=== PATIENT | male | born 1935 | race Caucasian/White ===

== ENCOUNTER 2019-12-21 11:45 | Inpatient (IN) | payer MEDICARE, BC ==
[~2019-12-21] VITALS: Ht 185.4 cm; Wt 83.8 kg
[~2019-12-21 11:45] MED LIST: AMOX1XR PO; ASPI81EC PO; CPAP; CYAN500; CYCL10 PO; FLUT.05NI; OXYACE5T PO; PRAV20 PO; PSEU120ER PO; Saw Palmetto500 MG; TOCO1000; TURMERIC500 M2; VITAMENS; Vitamin C100 M1; [UNRECOGNIZED DRUG - REMARK]
[2019-12-21] MEDS ORDERED: POTCHL20ER PO (12:34)
[2019-12-21] MEDS ORDERED: ENTRESTO 24 MG1 EACH PO (12:34)
[2019-12-21] MEDS ORDERED: FURO20 PO (12:34)
[2019-12-21] MEDS ORDERED: Aspirin EC81 MG PO (12:35)
[2019-12-21 12:38] LABS: Mean Corpuscular HGB Conc 32.7 g/dL (31.5-36.5); Mean Corpuscular Volume 92 fL (80-100); Mean Platelet Volume 10.6 fL (9.1-12.4); Platelet Count 233 K/mm3 (150-400); RDW Coefficient Variation 14.2 % (11.7-14.2); Red Blood Cell Count 5.34 M/mm3 (4.30-5.90)
[2019-12-21 13:00] LABS: Alanine Aminotransfer (ALT/SGP 47 U/L (12-78); Albumin, Blood 3.9 g/dL (3.4-5.0); Alk Phos 58 U/L (50-136); Anion Gap 6 mmol/L (6-16); Aspartate Aminotrans (AST/SGOT 26 U/L (12-37); Bilirubin, Total 0.6 mg/dL (0.1-1.0); Blood Urea Nitrogen 34 mg/dL (8-24); Bun/Creatinine Ratio 34.7 (12.0-20.0); CHOL/HDL RATIO 4.1; CO2, Blood 29 mmol/L (21-32); Calcium, Blood 9.1 mg/dL (8.5-10.1); Chloride, Blood 100 mmol/L (98-108); Cholesterol 235 mg/dL (50-200); Creatinine, Blood 0.98 mg/dL (0.60-1.20); Globulin, Blood 3.9 g/dL (2.2-4.0); Glomerular Filtration Rate >60 (60-); Glucose, Blood 112 mg/dL (70-99); HDL Cholesterol 57 mg/dL (>39); LDL/HDL RATIO 2.8; Low Density Lipoprotein Chol 162 mg/dL (0-110); Potassium, Blood 4.8 mmol/L (3.5-5.5); Sodium, Blood 135 mmol/L (136-145); Total Protein, Blood 7.8 g/dL (6.4-8.2); Triglycerides 81 mg/dL (30-160); Troponin I 0.019 ng/mL (0.000-0.040); Very Low Density Lipoprot Chol 16 mg/dL (6-32)
[2019-12-21 13:58] LABS: Prothrombin Time Results 10.7 Sec (9.7-11.5)
--- NOTE | 2019-12-21 17:12 | NUR ---
ALERT. ORIENTED. HAD C.P. AT HOME AT ABOUT 10 AM. NO C.P. SINCE COMING TO HOSPITAL. ON HEPARIN DRIP. GALDINO LUTHER HAS SPOKEN TO JEWEL BEARING GRINDER. AWARE NEEDS TO LET US KNOW IF NEEDS TO USE BATHROOM DUE TO HIS CONNECTING LINES. COOPERATIVE. PLEASANT. TELE ON SR W/PAC'S. ABLE TO MAKE NEEDS KNOWN. UNLABORED RESPIRATIONS. WCTM
[2019-12-22 04:56] LABS: BASOPHILS ABSOLUTE AUTO 0.06 K/mm3 (0.00-0.23); BASOPHILS PERCENT AUTO 1 % (0-2); EOSINOPHILS ABSOLUTE AUTO 0.26 K/mm3 (0.00-0.68); EOSINOPHILS PERCENT AUTO 3 % (0-6); Hematocrit 48.2 % (37.0-53.0); Hemoglobin 16.1 g/dL (13.5-17.5); IMMATURE GRAN ABSOLUTE AUTO 0.03 K/mm3 (0.00-0.10); IMMATURE GRAN PERCENT AUTO 0 % (0-1); LYMPHOCYTES ABSOLUTE AUTO 1.04 K/mm3 (0.84-5.20); LYMPHOCYTES PERCENT AUTO 12 % (21-46); MONOCYTES ABSOLUTE AUTO 0.79 K/mm3 (0.16-1.47); MONOCYTES PERCENT AUTO 9 % (4-13); Mean Corpuscular HGB Conc 33.4 g/dL (31.5-36.5); Mean Corpuscular Volume 90 fL (80-100); Mean Platelet Volume 10.4 fL (9.1-12.4); NEUTROPHILS PERCENT AUTO 76 % (41-73); Platelet Count 230 K/mm3 (150-400); RDW Coefficient Variation 14.2 % (11.7-14.2); RDW Standard Deviation 46.9 fL (35.1-46.3); Red Blood Cell Count 5.36 M/mm3 (4.30-5.90); White Blood Cell Count 8.98 K/mm3 (4.00-11.30)
[2019-12-22 05:15] LABS: Alanine Aminotransfer (ALT/SGP 40 U/L (12-78); Albumin, Blood 3.6 g/dL (3.4-5.0); Alk Phos 74 U/L (50-136); Anion Gap 8 mmol/L (6-16); Aspartate Aminotrans (AST/SGOT 27 U/L (12-37); Bilirubin, Total 0.9 mg/dL (0.1-1.0); Blood Urea Nitrogen 33 mg/dL (8-24); Bun/Creatinine Ratio 32.4 (12.0-20.0); CO2, Blood 26 mmol/L (21-32); Calcium, Blood 8.9 mg/dL (8.5-10.1); Chloride, Blood 102 mmol/L (98-108); Creatinine, Blood 1.02 mg/dL (0.60-1.20); Globulin, Blood 3.7 g/dL (2.2-4.0); Glomerular Filtration Rate >60 (60-); Glucose, Blood 132 mg/dL (70-99); Magnesium, Blood 1.9 mg/dL (1.6-2.4); Potassium, Blood 4.5 mmol/L (3.5-5.5); Sodium, Blood 136 mmol/L (136-145); Total Protein, Blood 7.3 g/dL (6.4-8.2)
--- NOTE | 2019-12-22 10:04 | NUR ---
Echocardiogram completed.
--- NOTE | 2019-12-22 13:14 | NUR ---
a+o, no chest pain, 2 ivs in upper arms, rm air, bed in low position, at bed side, npo for procedure, picked up by heart staff
--- NOTE | 2019-12-22 13:21 | NUR ---
REPORT FROM NISHI HEARD. PATIENT WILL BE COMING TO PCU 01 FROM STATION ENGINEER CHIEF. NO STENT PLACED. RIGHT RADIAL ACCESS WITH 12 CC AIR IN TR BAND
--- NOTE | 2019-12-22 14:18 | NUR ---
MD VISIT DR. CARRASCO IN. NO NEW ORDERS
--- NOTE | 2019-12-22 15:30 | NUR ---
1 CC AIR REMOVED FROM TR BAND
--- NOTE | 2019-12-22 15:59 | NUR ---
ADDITIONAL 3 CC AIR REMOVED FROM TR BAND
--- NOTE | 2019-12-22 16:25 | NUR ---
ALL 12 CC AIR REMOVED FROM TR BAND. PATIENT SEEMS A LITTLE CONFUSED. GOT OOB, SAYING HE NEEDED TO USE RESTROOM, AND THEN SAID HE DIDN'T NEED TO GO YET.
--- NOTE | 2019-12-22 16:26 | NUR ---
MD VISIT DR. CARRASCO IN
--- NOTE | 2019-12-22 16:56 | NUR ---
TR BAND REMAINS IN PLACE WHILE DEFLATED. ARM BOARD ON. PATIENT SLEEPING
--- NOTE | 2019-12-22 18:43 | NUR ---
PATIENT UP AD MITCH IN ROOM. ARM BOARD IN PLACE RT RADIAL. REMINDED NOT TO USE RIGHT ARM AND TO PRETEND WRIST IS BROKEN. WILL REPORT TO ONCOMING RN
--- NOTE | 2019-12-22 19:01 | NUR ---
RADIAL SITE CONTINUES STABLE. REPORT GIVEN TO NISHI COVARRUBIAS
--- NOTE | 2019-12-23 04:13 | NUR ---
SHIFT SUMMARY: PATIENT RIGHT RADIAL SITE C/D/I WITH NO SIGN OF HEMATOMA, BLEEDING OR INFECTION; ALL SENSATIONS INTACT WITH CAPILLARY REFILL OF < 3 SECOUNDS. ALL VSS, PATIENT ALERT AND ORIENTED WITH NO COMPLAINTS THIS SHIFT, STEADY ON FEET. CALL LIGHT WITHIN REACH, BED LOW AND LOCKED.
[2019-12-23] MEDS ORDERED: CLOP75 PO (09:59)
[2019-12-23] MEDS ORDERED: ATORVASTATIN CA80 MG PO (09:59)
[2019-12-23] MEDS ORDERED: METO25ER PO (10:00)
--- NOTE | 2019-12-23 12:48 | NUR ---
DISCHARGE INSTRUCTIONS GONE OVER WITH PT. INSTRUCTED PT ON NEW MEDICATIONS AND HOW TO OBTAIN THEM AT THEIR PHARMACY. PROVIDED CHF TEACHING WITH PT AND INSTRUCTED PT ON FOLLOW UP APPTS. PT AND FAMILY STATED UNDERSTANDING. ALL BELONGINGS GATHERED AND GIVEN TO PT. PT WAS ESCORTED OUT VIA WHEELCHAIR BY ALMA MCCARTHY.
== END 2019-12-23 12:50 | disposition home or self-care (01) | DRG 281 ==
LOC: ER 11:45 → MEDS 14:55 → PCU 12-22 12:39
PROVIDERS: Emergency Medicine; Nurse Practitioner Acute Care; Pharmacist; ADMIT Family Medicine
PROC: B211YZZ Fluoroscopy of Multiple Coronary Arteries using Other Contrast (ICD-10-PCS; principal; 2019-12-22)
DX: I21.4 Non-ST elevation (NSTEMI) myocardial infarction (principal); I50.22 Chronic systolic (congestive) heart failure; E78.5 Hyperlipidemia, unspecified; I11.0 Hypertensive heart disease with heart failure; I25.10 Atherosclerotic heart disease of native coronary artery without angina pectoris; G47.33 Obstructive sleep apnea (adult) (pediatric); Z79.82 Long term (current) use of aspirin; Z95.1 Presence of aortocoronary bypass graft; Z95.2 Presence of prosthetic heart valve; Z87.891 Personal history of nicotine dependence
CPT/HCPCS: 36415; 71045; 76937; 80053; 80061; 83735; 84484; 85025; 85027; 85610; 85730; 86850; 86900; 86901; 93005; 93010; 93308; 93454; 96365; 96375; 99152; 99153; 99285-25; A9270; A9270-GY; C1769; C1894; J1644; J1940; J2250; J3010; J7030; Q9967

== ENCOUNTER 2020-01-08 19:37 | Emergency (ER) | payer MEDICARE, BC ==
[~2020-01-08] VITALS: Ht 185.4 cm; Wt 78.5 kg
[~2020-01-08 19:37] MED LIST changes: +ATORVASTATIN CA80 MG PO; +Aspirin EC81 MG PO; +CLOP75 PO; +ENTRESTO 24 MG1 EACH PO; +FURO20 PO; +METO25ER PO; +POTCHL20ER PO
[2020-01-08] MEDS ORDERED: SPIRONOLACTONE25 MG PO (20:07)
[2020-01-08] MEDS ORDERED: ENTRESTO 24 MG1 EAC1 PO (20:07)
[2020-01-08 20:38] LABS: BASOPHILS ABSOLUTE AUTO 0.03 K/mm3 (0.00-0.23); BASOPHILS PERCENT AUTO 1 % (0-2); EOSINOPHILS ABSOLUTE AUTO 0.07 K/mm3 (0.00-0.68); EOSINOPHILS PERCENT AUTO 2 % (0-6); Hematocrit 46.7 % (37.0-53.0); Hemoglobin 15.2 g/dL (13.5-17.5); IMMATURE GRAN ABSOLUTE AUTO 0.01 K/mm3 (0.00-0.10); IMMATURE GRAN PERCENT AUTO 0 % (0-1); LYMPHOCYTES ABSOLUTE AUTO 0.69 K/mm3 (0.84-5.20); LYMPHOCYTES PERCENT AUTO 16 % (21-46); MONOCYTES ABSOLUTE AUTO 0.39 K/mm3 (0.16-1.47); MONOCYTES PERCENT AUTO 9 % (4-13); Mean Corpuscular HGB 30.5 pg (26.0-34.0); Mean Corpuscular HGB Conc 32.5 g/dL (31.5-36.5); Mean Corpuscular Volume 94 fL (80-100); Mean Platelet Volume 10.8 fL (9.1-12.4); NEUTROPHILS ABSOLUTE AUTO 3.03 K/mm3 (1.96-9.15); NEUTROPHILS PERCENT AUTO 72 % (41-73); Platelet Count 135 K/mm3 (150-400); RDW Coefficient Variation 14.6 % (11.7-14.2); RDW Standard Deviation 50.2 fL (35.1-46.3); Red Blood Cell Count 4.99 M/mm3 (4.30-5.90); White Blood Cell Count 4.22 K/mm3 (4.00-11.30)
[2020-01-08 20:50] LABS: Alanine Aminotransfer (ALT/SGP 143 U/L (12-78); Albumin, Blood 3.6 g/dL (3.4-5.0); Alk Phos 129 U/L (50-136); Anion Gap 7 mmol/L (6-16); Aspartate Aminotrans (AST/SGOT 84 U/L (12-37); Bilirubin, Total 0.6 mg/dL (0.1-1.0); Blood Urea Nitrogen 45 mg/dL (8-24); Bun/Creatinine Ratio 42.5 (12.0-20.0); CO2, Blood 26 mmol/L (21-32); Calcium, Blood 8.7 mg/dL (8.5-10.1); Chloride, Blood 105 mmol/L (98-108); Creatinine, Blood 1.06 mg/dL (0.60-1.20); Globulin, Blood 3.5 g/dL (2.2-4.0); Glomerular Filtration Rate >60 (60-); Glucose, Blood 114 mg/dL (70-99); Potassium, Blood 4.5 mmol/L (3.5-5.5); Sodium, Blood 138 mmol/L (136-145); Total Protein, Blood 7.1 g/dL (6.4-8.2)
[2020-01-08] MEDS ORDERED: XARELTO20 MG PO (22:46)
[2020-01-08] MEDS ORDERED: Amiodarone HCl200 MG PO (22:46)
== END 2020-01-09 00:27 | disposition home or self-care (01) ==
LOC: ER 19:37
PROVIDERS: Emergency Medicine
DX: I48.91 Unspecified atrial fibrillation (principal); I11.0 Hypertensive heart disease with heart failure; I50.22 Chronic systolic (congestive) heart failure; I25.10 Atherosclerotic heart disease of native coronary artery without angina pectoris; I25.2 Old myocardial infarction; G47.33 Obstructive sleep apnea (adult) (pediatric); Z87.891 Personal history of nicotine dependence; Z79.82 Long term (current) use of aspirin; Z79.899 Other long term (current) drug therapy
CPT/HCPCS: 36415; 80053; 84484; 85025; 93005; 93010; 99284-25

== ENCOUNTER 2020-01-11 14:07 | Inpatient (IN) | payer MEDICARE, BC ==
[~2020-01-11] VITALS: Ht 188 cm; Wt 73.2 kg
[~2020-01-11 14:07] MED LIST changes: +Amiodarone HCl200 MG PO; +ENTRESTO 24 MG1 EAC1 PO; +SPIRONOLACTONE25 MG PO; +XARELTO20 MG PO
[2020-01-11 14:29] LABS: BASOPHILS ABSOLUTE AUTO 0.01 K/mm3 (0.00-0.23); BASOPHILS PERCENT AUTO 0 % (0-2); EOSINOPHILS ABSOLUTE AUTO 0.12 K/mm3 (0.00-0.68); EOSINOPHILS PERCENT AUTO 2 % (0-6); Hematocrit 43.6 % (37.0-53.0); Hemoglobin 14.5 g/dL (13.5-17.5); IMMATURE GRAN ABSOLUTE AUTO 0.01 K/mm3 (0.00-0.10); IMMATURE GRAN PERCENT AUTO 0 % (0-1); LYMPHOCYTES ABSOLUTE AUTO 0.95 K/mm3 (0.84-5.20); LYMPHOCYTES PERCENT AUTO 17 % (21-46); MONOCYTES ABSOLUTE AUTO 0.82 K/mm3 (0.16-1.47); MONOCYTES PERCENT AUTO 15 % (4-13); Mean Corpuscular HGB 30.5 pg (26.0-34.0); Mean Corpuscular HGB Conc 33.3 g/dL (31.5-36.5); Mean Corpuscular Volume 92 fL (80-100); Mean Platelet Volume 10.6 fL (9.1-12.4); NEUTROPHILS ABSOLUTE AUTO 3.61 K/mm3 (1.96-9.15); NEUTROPHILS PERCENT AUTO 65 % (41-73); Platelet Count 152 K/mm3 (150-400); RDW Coefficient Variation 14.1 % (11.7-14.2); Red Blood Cell Count 4.76 M/mm3 (4.30-5.90); White Blood Cell Count 5.52 K/mm3 (4.00-11.30)
[2020-01-11 14:45] LABS: International Normalized Ratio 1.18; Prothrombin Time Results 12.5 Sec (9.7-11.5)
[2020-01-11 14:50] LABS: Albumin, Blood 3.4 g/dL (3.4-5.0); Bilirubin, Direct 0.2 mg/dL (0.0-0.3); Bilirubin, Indirect 0.4 mg/dL (0.1-0.7); Bilirubin, Total 0.6 mg/dL (0.1-1.0); Bun/Creatinine Ratio 37.5 (12.0-20.0); Calcium, Blood 8.4 mg/dL (8.5-10.1); Creatinine, Blood 1.68 mg/dL (0.60-1.20); Globulin, Blood 3.4 g/dL (2.2-4.0); Potassium, Blood 4.3 mmol/L (3.5-5.5); Total Protein, Blood 6.8 g/dL (6.4-8.2); Troponin I 0.045 ng/mL (0.000-0.040)
[2020-01-11 17:07] LABS: Source, Urine Catheter
[2020-01-11 17:18] LABS: Bilirubin, Urine Neg (Neg); Blood, Urine Neg (Neg); Glucose Qualitative, Urine Neg (Neg); Ketones, Urine 2+ (Neg); Leukocyte Esterase, Urine Neg (Neg); Nitrite, Urine Neg (Neg); Protein, Urine 2+ (Neg); Urobilinogen, Urine NORM (Normal)
[2020-01-11 17:30] LABS: Appearance, Urine Clear (Clear); Color, Urine Yellow (P-Yellow)
[2020-01-11 17:32] LABS: Bacteria Few /hpf; Red Blood Cells, Urine Not Seen /hpf (0-2); White Blood Cells, Urine Rare /hpf (0-5)
[2020-01-11 17:33] LABS: Amorphous Light (0-Heavy); Squamous Epithelial Cells Rare /hpf (Few)
[2020-01-11 18:35] LABS: Source, Urine Clean Catch
[2020-01-11 18:43] LABS: Bilirubin, Urine Neg (Neg); Blood, Urine Neg (Neg); Glucose Qualitative, Urine Neg (Neg); Ketones, Urine 2+ (Neg); Leukocyte Esterase, Urine Neg (Neg); Nitrite, Urine Neg (Neg); Protein, Urine 2+ (Neg); Specific Gravity, Urine 1.025 (1.003-1.022); Urobilinogen, Urine NORM (Normal)
[2020-01-11 19:00] LABS: Appearance, Urine Hazy (Clear); Color, Urine Yellow (P-Yellow)
[2020-01-11 19:03] LABS: Bacteria Mod /hpf; Red Blood Cells, Urine Not Seen /hpf (0-2); Squamous Epithelial Cells Rare /hpf (Few); White Blood Cells, Urine Rare /hpf (0-5)
[2020-01-11 19:04] LABS: Amorphous Light (0-Heavy); Calcium Oxalate Crystals Few /hpf
[2020-01-11 19:05] LABS: Granular Casts Rare /lpf (0)
--- NOTE | 2020-01-11 19:33 | NUR ---
NEW ER ADMIT REPORT RECIEVED FROM APPLIED MATHEMATICIAN. NS ORDERS CLARIFIED w DR BOLTON, STATE ONLY WANTS 500 MLS GIVEN @ 100 ML/HR. CARDIAC DINNER TRAY ORDERED/. PT IS A/O X2-3, YANKTON w BILAT HEARING AIDES IN, SOMEWHAT FORGETFUL, HESITANT. HE STATE WEAKNESS X2 DAYS, STATE DIARRHEA. CONTACT PRECAUTIONS INITIATED, GI PANEL ORDERED BY DR. HOPKINS IRREG, TELE PLACED, AFIB @ 118/MX, SCHEDULED XARELTO GIVEN. 3+ BLE EDEMA, SCDS IN PLACE. ORDER BLADDER SCAN, 8ML PVR, URINE SAMPLE SENT/ORDER. RT NOTIFIED PT BROUGHT IN HOME CPAP. VSS @ THIS TIME. PT SITTING UP IN BED FOR DINNER. ORIENTED TO CALL SYSTEM, FALL PRECATIONS. BED ALARM ON.
[2020-01-11 21:49] LABS: Bun/Creatinine Ratio 42.4 (12.0-20.0); Calcium, Blood 8.2 mg/dL (8.5-10.1); Creatinine, Blood 1.39 mg/dL (0.60-1.20)
[2020-01-11 23:56] LABS: Adenovirus F 40/41 Not Detected (NOT DETECT); Astrovirus Detected (NOT DETECT); Campylobacter Sp Not Detected (NOT DETECT); Cryptosporidium Not Detected (NOT DETECT); Cyclospora Cayetanensis Not Detected (NOT DETECT); E. Coli O157 Not Detected (NOT DETECT); Entamoeba Histolytica Not Detected (NOT DETECT); Enteroaggregative E. coli-EAEC Not Detected (NOT DETECT); Enteropathogenic E. coli-EPEC Not Detected (NOT DETECT); Enterotoxigenic E. coli-ETEC Not Detected (NOT DETECT); Giardia Lamblia Not Detected (NOT DETECT); Norovirus GI/GII Not Detected (NOT DETECT); Plesiomonas Shigelloides Not Detected (NOT DETECT); Rotavirus A Not Detected (NOT DETECT); Salmonella Sp Not Detected (NOT DETECT); Sapovirus Not Detected (NOT DETECT); Shiga Toxin-prod E. coli-STEC Not Detected (NOT DETECT); Shigella/Enteroin E. coli-EIEC Not Detected (NOT DETECT); Vibrio Cholerae Not Detected (NOT DETECT); Vibrio Sp Not Detected (NOT DETECT); Yersinia Enterocolitica Not Detected (NOT DETECT)
--- NOTE | 2020-01-12 03:05 | NUR ---
01/12/20 0240 INSURANCE SALES SPECIALIST ASSISTED PT TO BATHROOM FOR QS VOIDING. BLADDER SCAN AFTER VOID WAS = 2 ML ONLY. ABDOMEN SOFT.
[2020-01-12 05:41] LABS: BASOPHILS ABSOLUTE AUTO 0.01 K/mm3 (0.00-0.23); BASOPHILS PERCENT AUTO 0 % (0-2); EOSINOPHILS ABSOLUTE AUTO 0.22 K/mm3 (0.00-0.68); EOSINOPHILS PERCENT AUTO 5 % (0-6); Hematocrit 39.8 % (37.0-53.0); IMMATURE GRAN ABSOLUTE AUTO 0.02 K/mm3 (0.00-0.10); IMMATURE GRAN PERCENT AUTO 0 % (0-1); LYMPHOCYTES ABSOLUTE AUTO 1.24 K/mm3 (0.84-5.20); LYMPHOCYTES PERCENT AUTO 25 % (21-46); MONOCYTES ABSOLUTE AUTO 0.69 K/mm3 (0.16-1.47); MONOCYTES PERCENT AUTO 14 % (4-13); Mean Corpuscular HGB Conc 32.7 g/dL (31.5-36.5); Mean Corpuscular Volume 92 fL (80-100); NEUTROPHILS ABSOLUTE AUTO 2.71 K/mm3 (1.96-9.15); NEUTROPHILS PERCENT AUTO 55 % (41-73); Platelet Count 127 K/mm3 (150-400); RDW Coefficient Variation 14.5 % (11.7-14.2); RDW Standard Deviation 48.7 fL (35.1-46.3); Red Blood Cell Count 4.34 M/mm3 (4.30-5.90); White Blood Cell Count 4.89 K/mm3 (4.00-11.30)
[2020-01-12 06:12] LABS: Magnesium, Blood 2.1 mg/dL (1.6-2.4)
[2020-01-12 06:17] LABS: Bun/Creatinine Ratio 40.6 (12.0-20.0); Creatinine, Blood 1.28 mg/dL (0.60-1.20)
--- NOTE | 2020-01-12 07:40 | NUR ---
01/12/20 0640 FAMILY CALLED AND SPOKE WITH SDC TEACHER PRIMARY RN WITH ANOTHER PT. FAMILY WAS UPDATED ON PT STATUS AND QUESTIONS ANSWERED PER ELENA SIGALA RN. PT STABLE AND ON ISOLATION FOR POSITIVE TEST FOR C. DIFF. VITALS STABLE.UNEVENTFUL NIGHT.
--- NOTE | 2020-01-12 18:23 | NUR ---
SUMMARY PT HAS BEEN A/O X3 T/O DAY, PLEASANT AFFECT. UP IN CHAIR T/O DAY, AMBULATES IN ROOM IND, GAIT STEADY TODAY, STATE NO DIZZINESS/LIGHTHEADEDNESS. BP CONTINUES SOMEWHAT LOW 90'S/50'S, PT CAUTIONED TO DANGLE, RISE CAREFULLY & SIT BACK DOWN IF LIGHTEDHEADED. DR RESUMED AMIODORONE TODAY w PARAMETERS TO HOLD IF SBP BELOW 100. HELD @ THIS TIME/DR. PT ENCOURAGED TO DRINK 5 GLASSES OF WATER/DAY BY DR RAMOS. PT/OT EVAL TODAY, STATE PT IND IN ROOM, D/C HOME WHEN APPROP. TELE REPORT CONTINUING AFIB/AFLUTTER 90-120, DR AWARE. GFR HAS IMPROVED @ 57. PT & GRANDAUGHTER UPDATED TODAY ON PROGRESS, DR RAMOS STATE POSS D/C HOME TOMORROW.
[2020-01-13 05:09] LABS: BASOPHILS ABSOLUTE AUTO 0.01 K/mm3 (0.00-0.23); BASOPHILS PERCENT AUTO 0 % (0-2); EOSINOPHILS ABSOLUTE AUTO 0.23 K/mm3 (0.00-0.68); EOSINOPHILS PERCENT AUTO 5 % (0-6); Hemoglobin 13.8 g/dL (13.5-17.5); IMMATURE GRAN ABSOLUTE AUTO 0.01 K/mm3 (0.00-0.10); IMMATURE GRAN PERCENT AUTO 0 % (0-1); LYMPHOCYTES ABSOLUTE AUTO 1.23 K/mm3 (0.84-5.20); LYMPHOCYTES PERCENT AUTO 25 % (21-46); MONOCYTES ABSOLUTE AUTO 0.61 K/mm3 (0.16-1.47); MONOCYTES PERCENT AUTO 12 % (4-13); Mean Corpuscular HGB 29.7 pg (26.0-34.0); Mean Corpuscular HGB Conc 32.9 g/dL (31.5-36.5); Mean Corpuscular Volume 91 fL (80-100); Mean Platelet Volume 10.9 fL (9.1-12.4); NEUTROPHILS ABSOLUTE AUTO 2.94 K/mm3 (1.96-9.15); NEUTROPHILS PERCENT AUTO 58 % (41-73); Platelet Count 155 K/mm3 (150-400); RDW Coefficient Variation 14.4 % (11.7-14.2); RDW Standard Deviation 47.8 fL (35.1-46.3); Red Blood Cell Count 4.64 M/mm3 (4.30-5.90); White Blood Cell Count 5.03 K/mm3 (4.00-11.30)
[2020-01-13 05:32] LABS: Anion Gap 3 mmol/L (6-16); Blood Urea Nitrogen 44 mg/dL (8-24); Bun/Creatinine Ratio 44.1 (12.0-20.0); CO2, Blood 27 mmol/L (21-32); Calcium, Blood 8.4 mg/dL (8.5-10.1); Chloride, Blood 105 mmol/L (98-108); Glomerular Filtration Rate >60 (60-); Glucose, Blood 102 mg/dL (70-99); Potassium, Blood 4.6 mmol/L (3.5-5.5); Sodium, Blood 135 mmol/L (136-145)
--- NOTE | 2020-01-13 07:47 | NUR ---
SHIFT SUMMARY NO ACUTE CHANGES. AOX3, FOLLOWS DIRECTIONS, ANSWERS QUESTIONS APPROPRIATELY. SA[place]ATTLE. NO DIARRHEA THIS SHIFT, PT HAD MEDIUM FORMED STOOL. TOLERATING DIET. NO N/V. TELE RUNNING A. FLUTTER W/BBB HR 108. VSS. WORE CPAP @. CALL LIGHT IN REACH.
[2020-01-13] MEDS ORDERED: ACET325 PO (11:22)
[2020-01-13] MEDS ORDERED: Culturelle1 CAP PO (11:23)
[2020-01-13] MEDS ORDERED: Loperamide2 MG PO (11:24)
[2020-01-13] MEDS ORDERED: ONDA4ODT MM (11:28)
--- NOTE | 2020-01-13 12:47 | NUR ---
PT DISCHARGED FROM THE UNIT AT 1145. MEDICATIONS FAXED TO [facility]. MEDICATIONS REVIEWED. CALLED PRIMARY TO SCHEDULE FOLLOW UP APT. THEY WILL CALL HIM BACK TO SCHEDULE, PT DOES NOT CURRENTLY SEE A CORPORATE STRATEGY INTERN, NOTIFIED PT THAT HE WILL NEED TO ESTABLISH A CORPORATE STRATEGY INTERN AND SHOULD DISCUSS WITH HIS PRIMARY. DISCHARGE INSTRUCTIONS REVIEWED. IV REMOVED. IV SITE BAGAN TO LEAK, DRESSING REINFORCED AND CHANGED PRIOR TO PT LEAVING. PT LEFT VIA WHEELCHAIR WHERE FAMILY WILL PRIVIDE A RIDE HOME
== END 2020-01-13 12:18 | disposition home or self-care (01) | DRG 683 ==
LOC: ER 14:07 → MEDS 14:08 → ENPENDDIS 01-13 11:03 → MEDS 01-13 12:18
PROVIDERS: Family Medicine; Physician Assistant; ADMIT Internal Medicine
DX: N17.9 Acute kidney failure, unspecified (principal); I50.22 Chronic systolic (congestive) heart failure; I48.92 Unspecified atrial flutter; I25.10 Atherosclerotic heart disease of native coronary artery without angina pectoris; E78.5 Hyperlipidemia, unspecified; G47.33 Obstructive sleep apnea (adult) (pediatric); I11.0 Hypertensive heart disease with heart failure; Z87.891 Personal history of nicotine dependence; I48.91 Unspecified atrial fibrillation; Z95.1 Presence of aortocoronary bypass graft; Z79.01 Long term (current) use of anticoagulants; I95.9 Hypotension, unspecified; Z95.3 Presence of xenogenic heart valve; Z66 Do not resuscitate
CPT/HCPCS: 0097U; 36415; 71045; 80048; 80076; 81001; 82140; 83605; 83735; 83880; 84484; 85025; 85610; 85730; 87040; 87077; 87086; 87186; 87324; 93005; 93010; 94660; 94762; 96361; 96374; 96376; 97161; 97165; 97530; 97535; 99285-25; A9270; A9270-GY; G0378; J3370; J7030

== ENCOUNTER → 2020-08-11 | Outpatient (CLI) | payer MEDICARE, BC ==
[~2020-08-11] MED LIST changes: +ACET325 PO; +Culturelle1 CAP PO; +Loperamide2 MG PO; +ONDA4ODT MM
[2020-08-17 13:12] LABS: M-SPIKE, % Not Observed % (Not Observed); PROTEIN,TOTAL,URINE 5.1 mg/dL (Not Estab.)
== END | disposition home or self-care (01) ==
LOC: LAB 17:15 → LAB SHORT 17:15
PROVIDERS: Family Medicine
DX: R89.9 Unspecified abnormal finding in specimens from other organs, systems and tissues (principal)
CPT/HCPCS: 84156; 84166

== ENCOUNTER 2021-01-21 14:05 | Emergency (ER) | payer MEDICARE, BC ==
[~2021-01-21] VITALS: Ht 188 cm; Wt 81.7 kg
[2021-01-21 14:42] LABS: BASOPHILS ABSOLUTE AUTO 0.04 K/mm3 (0.00-0.23); BASOPHILS PERCENT AUTO 0 % (0-2); EOSINOPHILS ABSOLUTE AUTO 0.12 K/mm3 (0.00-0.68); EOSINOPHILS PERCENT AUTO 1 % (0-6); Hematocrit 42.1 % (37.0-53.0); Hemoglobin 14.1 g/dL (13.5-17.5); IMMATURE GRAN ABSOLUTE AUTO 0.18 K/mm3 (0.00-0.10); IMMATURE GRAN PERCENT AUTO 1 % (0-1); LYMPHOCYTES ABSOLUTE AUTO 0.47 K/mm3 (0.84-5.20); LYMPHOCYTES PERCENT AUTO 2 % (21-46); MONOCYTES ABSOLUTE AUTO 1.33 K/mm3 (0.16-1.47); MONOCYTES PERCENT AUTO 6 % (4-13); Mean Corpuscular HGB 31.3 pg (26.0-34.0); Mean Corpuscular HGB Conc 33.5 g/dL (31.5-36.5); Mean Corpuscular Volume 94 fL (80-100); Mean Platelet Volume 10.5 fL (9.1-12.4); NEUTROPHILS ABSOLUTE AUTO 18.57 K/mm3 (1.96-9.15); NEUTROPHILS PERCENT AUTO 90 % (41-73); Platelet Count 198 K/mm3 (150-400); RDW Coefficient Variation 13.9 % (11.7-14.2); RDW Standard Deviation 48.3 fL (35.1-46.3); White Blood Cell Count 20.71 K/mm3 (4.00-11.30)
[2021-01-21 15:07] LABS: Albumin, Blood 3.4 g/dL (3.4-5.0); Albumin/Globulin Ratio 0.7 (0.8-1.8); Bilirubin, Total 1.9 mg/dL (0.1-1.0); Bun/Creatinine Ratio 41.5 (12.0-20.0); Calcium, Blood 8.6 mg/dL (8.5-10.1); Creatinine, Blood 1.35 mg/dL (0.60-1.20); Globulin, Blood 4.6 g/dL (2.2-4.0); Potassium, Blood 3.7 mmol/L (3.5-5.5); Troponin I 0.035 ng/mL (0.000-0.040)
[2021-01-21] MEDS ORDERED: AZIT250 PO (17:31)
[2021-01-21] MEDS ORDERED: CEFP200 PO (17:31)
== END 2021-01-21 18:42 | disposition home or self-care (01) ==
LOC: ER 14:05
PROVIDERS: Physician Assistant
DX: J18.9 Pneumonia, unspecified organism (principal); R91.8 Other nonspecific abnormal finding of lung field
CPT/HCPCS: 36415; 71046; 71260; 80053; 83880; 84484; 85025; 93005; 93010; 96365-59; 96367-59; 99284-25; J0456; J0696; J7030; J7050; Q9967

== ENCOUNTER 2021-07-05 11:26 | Inpatient (IN) | payer MEDICARE, BC ==
[~2021-07-05] VITALS: Ht 182.9 cm; Wt 80.4 kg
[~2021-07-05 11:26] MED LIST changes: +AZIT250 PO; +CEFP200 PO
[2021-07-05] MEDS ORDERED: FURO40 PO (11:50)
[2021-07-05] MEDS ORDERED: ENTRESTO 24 MG1 EAC2 PO (11:51)
[2021-07-05] MEDS ORDERED: FURO20 PO (11:51)
[2021-07-05 12:48] LABS: BASOPHILS ABSOLUTE AUTO 0.02 K/mm3 (0.00-0.23); BASOPHILS PERCENT AUTO 0 % (0-2); EOSINOPHILS ABSOLUTE AUTO 0.06 K/mm3 (0.00-0.68); EOSINOPHILS PERCENT AUTO 1 % (0-6); Hematocrit 38.4 % (37.0-53.0); Hemoglobin 12.8 g/dL (13.5-17.5); IMMATURE GRAN ABSOLUTE AUTO 0.06 K/mm3 (0.00-0.10); IMMATURE GRAN PERCENT AUTO 1 % (0-1); LYMPHOCYTES ABSOLUTE AUTO 0.18 K/mm3 (0.84-5.20); LYMPHOCYTES PERCENT AUTO 2 % (21-46); MONOCYTES ABSOLUTE AUTO 0.82 K/mm3 (0.16-1.47); MONOCYTES PERCENT AUTO 8 % (4-13); Mean Corpuscular HGB 30.9 pg (26.0-34.0); Mean Corpuscular HGB Conc 33.3 g/dL (31.5-36.5); Mean Corpuscular Volume 93 fL (80-100); NEUTROPHILS PERCENT AUTO 89 % (41-73); Platelet Count 178 K/mm3 (150-400); RDW Coefficient Variation 15.6 % (11.7-14.2); RDW Standard Deviation 53.7 fL (35.1-46.3); Red Blood Cell Count 4.14 M/mm3 (4.30-5.90); White Blood Cell Count 10.14 K/mm3 (4.00-11.30)
[2021-07-05 13:09] LABS: Alanine Aminotransfer (ALT/SGP 46 U/L (12-78); Albumin, Blood 2.1 g/dL (3.4-5.0); Albumin/Globulin Ratio 0.5 (0.8-1.8); Alk Phos 94 U/L (50-136); Anion Gap 3 mmol/L (6-16); Aspartate Aminotrans (AST/SGOT 51 U/L (12-37); Bilirubin, Total 1.3 mg/dL (0.1-1.0); Blood Urea Nitrogen 24 mg/dL (8-24); Bun/Creatinine Ratio 22.9 (12.0-20.0); CO2, Blood 38 mmol/L (21-32); Calcium, Blood 8.2 mg/dL (8.5-10.1); Chloride, Blood 95 mmol/L (98-108); Creatinine, Blood 1.05 mg/dL (0.60-1.20); Globulin, Blood 4.4 g/dL (2.2-4.0); Glomerular Filtration Rate >60 (60-); Glucose, Blood 107 mg/dL (70-99); Potassium, Blood 3.5 mmol/L (3.5-5.5); Sodium, Blood 136 mmol/L (136-145); Total Protein, Blood 6.5 g/dL (6.4-8.2); Troponin I 0.081 ng/mL (0.000-0.040)
[2021-07-05 15:04] LABS: SARS-Cov-2 (COVID-19) PCR, MMC NEGATIVE (NEGATIVE)
[2021-07-05] MEDS ORDERED: FUROSEMIDE40 MG PO (15:25)
[2021-07-05] MEDS ORDERED: XARELTO20 M1 PO (15:25)
[2021-07-05] MEDS ORDERED: AMIODARONE HCL200 M1 PO (15:26)
[2021-07-05] MEDS ORDERED: ENTRESTO 49 MG1 EAC7 PO (15:26)
[2021-07-05] MEDS ORDERED: FLUTICASONE-SA1 EAC9 INH (15:27)
[2021-07-05] MEDS ORDERED: Deltasone 10 mg10 MG (15:28)
[2021-07-05 18:03] LABS: Source, Urine Catheter
[2021-07-05 18:27] LABS: Appearance, Urine Clear (Clear); Bilirubin, Urine Neg (Neg); Blood, Urine 4+ (Neg); Color, Urine Yellow (P-Yellow); Glucose Qualitative, Urine Neg (Neg); Ketones, Urine Neg (Neg); Leukocyte Esterase, Urine Neg (Neg); Nitrite, Urine Neg (Neg); Protein, Urine Neg (Neg); Specific Gravity, Urine 1.005 (1.003-1.022); Urobilinogen, Urine 1+ (Normal)
[2021-07-05 19:14] LABS: Bacteria Few /hpf; Squamous Epithelial Cells Mod /hpf (Few)
--- NOTE | 2021-07-05 19:36 | NUR ---
END OF SHIFT SUMMARY: PATIENT ARRIVED TO UNIT. PATIENT REPORTED DISCOMFORT IN LEGS AND PROSTATE. ASIDE FROM REPOSITIONING, PATIENT DENIED NEED FOR INTERVENTION. PATIENT IS VERY HARD OF HEARING. PATIENT HAS TIME UNDERSTANDING DIRECTIONS AT TIME. DIFFICULT TO DETERMINE IF THAT IS RELATED TO HEARING OR DIFFICULTY UNDERSTANDING. PATIENT'S SON PROVIDES CARE TO THE PATIENT AT HOME AND IS AT THE BEDSIDE TO ASSIST. PATIENT REQUIRES 1-2 ASSIST WITH COORDINATING STANDING AND FOLLOWING DIRECTIONS. BED ALARM ON. PATIENT DENIES CHEST PAIN, SHORTNESS OF BREATH AND/OR DIFFICULTY BREATHING. PATIENT ARRIVED TO THE UNIT ON 5L VIA NC. BY THE END OF THE SHIFT PATIENT WAS AT 98-100% ON 4L. WEENED DOWN TO 3L AT END OF SHIFT AND NOTIFIED INTERNAL MEDICINE SPECIALIST RN OF WEENING TRIAL. PATIENT CONTINUED TO APPEAR COMFORTABLE AND TO DENY DIFFICULTY BREATHING. PATIENT HAS 3-4+ PITTING EDEMA IN BLE. PATIENT REPORTS THAT ELEVATION AND MASSAGE HELPS. PATIENT REPORTS SOME DISCOMFORT FROM THE EDEMA. PATIENT HAS URINARY RETENTION. PATIENT VOIDED 350ML. URINE IS CLEAR, LIGHT YELLOW.
[2021-07-05] MEDS ORDERED: Prednisone10 MG PO (19:37)
[2021-07-05] MEDS ORDERED: IPRAT-ALBUT 0.5-3 ML INH (19:38)
[2021-07-05] MEDS ORDERED: LEVO750 PO (19:39)
--- NOTE | 2021-07-05 20:20 | NUR ---
NOTIFIED HOSPITALIST DR. COOK REGARDING PT. LOW BP THIS EVENING. INSTRUCTED TO CONT TO MONITOR VITALS T/O THE NIGHT. PT. RESTING QUIETLY IN BED, NO APPARENT DISTRESS NOTED. DENIES ANY COMPLAINTS. CALL LIGHT WITHIN REACH, SIDE RAILS UPX2, AND BED ALARM ON. WILL CONT TO MONITOR.
--- NOTE | 2021-07-06 04:59 | NUR ---
SHIFT SUMMARY- PT. A&OX2 WITH INTERMITTENT CONFUSION AND [place]. NO COMPLAINTS OF PAIN T/O THE NIGHT. BLE EDEMA, LEGS ELEVATED ON PILLOWS. PT. REPORTS GOOD RELIEF. PT. IMPULSIVE AT TIMES, 1PA TO BSC. HYPOTENSIVE DURING THE NIGHT, HOSPITALIST NOTIFED (SEE NURSE NOTE). RESTING QUIETLY IN BED, NO APPARENT DISTRESS NOTED. CALL LIGHT WITHIN REACH, SIDE RAILS UPX3, AND BED ALARM ON. WILL CONT TO MONITOR.
[2021-07-06 05:23] LABS: BASOPHILS ABSOLUTE AUTO 0.02 K/mm3 (0.00-0.23); BASOPHILS PERCENT AUTO 0 % (0-2); EOSINOPHILS ABSOLUTE AUTO 0.51 K/mm3 (0.00-0.68); EOSINOPHILS PERCENT AUTO 7 % (0-6); Hematocrit 34.9 % (37.0-53.0); Hemoglobin 11.3 g/dL (13.5-17.5); IMMATURE GRAN ABSOLUTE AUTO 0.04 K/mm3 (0.00-0.10); IMMATURE GRAN PERCENT AUTO 1 % (0-1); LYMPHOCYTES ABSOLUTE AUTO 0.23 K/mm3 (0.84-5.20); LYMPHOCYTES PERCENT AUTO 3 % (21-46); MONOCYTES ABSOLUTE AUTO 0.75 K/mm3 (0.16-1.47); MONOCYTES PERCENT AUTO 10 % (4-13); Mean Corpuscular HGB 30.1 pg (26.0-34.0); Mean Corpuscular HGB Conc 32.4 g/dL (31.5-36.5); Mean Corpuscular Volume 93 fL (80-100); Mean Platelet Volume 10.2 fL (9.1-12.4); NEUTROPHILS ABSOLUTE AUTO 5.82 K/mm3 (1.96-9.15); NEUTROPHILS PERCENT AUTO 79 % (41-73); Platelet Count 158 K/mm3 (150-400); RDW Coefficient Variation 15.5 % (11.7-14.2); RDW Standard Deviation 53.2 fL (35.1-46.3); Red Blood Cell Count 3.75 M/mm3 (4.30-5.90); White Blood Cell Count 7.37 K/mm3 (4.00-11.30)
[2021-07-06 05:48] LABS: Alanine Aminotransfer (ALT/SGP 36 U/L (12-78); Albumin, Blood 1.6 g/dL (3.4-5.0); Albumin/Globulin Ratio 0.4 (0.8-1.8); Alk Phos 73 U/L (50-136); Anion Gap 2 mmol/L (6-16); Aspartate Aminotrans (AST/SGOT 43 U/L (12-37); Bilirubin, Total 1.2 mg/dL (0.1-1.0); Blood Urea Nitrogen 18 mg/dL (8-24); Bun/Creatinine Ratio 18.3 (12.0-20.0); CO2, Blood 38 mmol/L (21-32); Chloride, Blood 96 mmol/L (98-108); Creatinine, Blood 0.99 mg/dL (0.60-1.20); Globulin, Blood 3.8 g/dL (2.2-4.0); Glomerular Filtration Rate >60 (60-); Glucose, Blood 109 mg/dL (70-99); Potassium, Blood 3.1 mmol/L (3.5-5.5); Sodium, Blood 136 mmol/L (136-145); Total Protein, Blood 5.4 g/dL (6.4-8.2)
--- NOTE | 2021-07-06 16:59 | NUR ---
SHIFT SUMMARY PT IS AO. PT DENIES PAIN, N/V. PT C/O SOB AND IS ON 6 L O2 WITH SATS 91-93%. PLAN IS FOR THORACENTESIS TOMORROW. PT AND SON VISITED THIS SHIFT AND DISCUSSED PLANS WITH PHYSICIAN. PT IS ONE ASSIST IN ROOM TO [facility]. PT APPETITE IS MODERATE. PT IS HYPOTENSIVE THIS SHIFT. PT IS IN ROOM, CALL LIGHT IN REACH, LOW POSITION.
--- NOTE | 2021-07-07 04:44 | NUR ---
SHIFT SUMMARY- PT. C/O SOB LAST NIGHT, SATS IN THE MID 80'S. PLACED ON 15L NON-REBREATHER BY RT, SATS MAINTAINED >90. PT. DENIED ANY PAIN T/O THE NIGHT. AWAKE MOST OF THE NIGHT RESTING QUIETLY IN BED. NO APPARENT DISTRESS NOTED. PLAN FOR THORACENTESIS TODAY. CALL LIGHT WITHIN REACH, SIDE RAILS UPX3, AND BED ALARM ON. WILL CONT TO MONITOR.
[2021-07-07 04:58] LABS: Hematocrit 35.9 % (37.0-53.0); Hemoglobin 11.7 g/dL (13.5-17.5); Mean Corpuscular HGB 30.5 pg (26.0-34.0); Mean Corpuscular HGB Conc 32.6 g/dL (31.5-36.5); Mean Corpuscular Volume 94 fL (80-100); Mean Platelet Volume 9.8 fL (9.1-12.4); Platelet Count 166 K/mm3 (150-400); RDW Coefficient Variation 15.5 % (11.7-14.2); RDW Standard Deviation 53.1 fL (35.1-46.3); Red Blood Cell Count 3.83 M/mm3 (4.30-5.90); White Blood Cell Count 8.12 K/mm3 (4.00-11.30)
[2021-07-07 05:15] LABS: International Normalized Ratio 1.19; Prothrombin Time Results 12.4 Sec (9.7-11.5)
[2021-07-07 06:03] LABS: Alanine Aminotransfer (ALT/SGP 49 U/L (12-78); Albumin, Blood 2.7 g/dL (3.4-5.0); Albumin/Globulin Ratio 0.7 (0.8-1.8); Alk Phos 85 U/L (50-136); Anion Gap 6 mmol/L (6-16); Aspartate Aminotrans (AST/SGOT 55 U/L (12-37); Bilirubin, Direct 0.7 mg/dL (0.0-0.3); Bilirubin, Indirect 0.9 mg/dL (0.1-0.7); Bilirubin, Total 1.6 mg/dL (0.1-1.0); Blood Urea Nitrogen 21 mg/dL (8-24); Bun/Creatinine Ratio 21.6 (12.0-20.0); CO2, Blood 35 mmol/L (21-32); Calcium, Blood 8.4 mg/dL (8.5-10.1); Chloride, Blood 94 mmol/L (98-108); Creatinine, Blood 0.97 mg/dL (0.60-1.20); Globulin, Blood 3.9 g/dL (2.2-4.0); Glomerular Filtration Rate >60 (60-); Glucose, Blood 144 mg/dL (70-99); Magnesium, Blood 1.8 mg/dL (1.6-2.4); Phosphorus, Blood 2.7 mg/dL (2.5-4.9); Potassium, Blood 3.7 mmol/L (3.5-5.5); Sodium, Blood 135 mmol/L (136-145); Total Protein, Blood 6.6 g/dL (6.4-8.2)
[2021-07-07 12:03] LABS: Automated BF WBC Count 0.115 K/mm3 (0-999); Body Fluid WBC Count 115 /mm3 (0-999)
[2021-07-07 12:06] LABS: Automated BF RBC Count < 0.003 M/mm3 (0-0)
--- NOTE | 2021-07-07 12:12 | NUR ---
PT WENT DOWN AND HAD AN US GUIDED THORACENTESIS, PT NOW BACK TO THE ROOM, UP IN THE CHAIR, STATES HE IS "BREATHING BETTER"
[2021-07-07 12:26] LABS: Total Cell Count, Body Fluid 100
[2021-07-07 12:27] LABS: Appearance, Body Fluid Clear (Clear)
[2021-07-07 12:41] LABS: Albumin, Body Fluid 0.5 g/dL; Glucose, Body Fluid 148 mg/dL; Lactate Dehydrogenase, Body Fl 106 U/L; Protein, Body Fluid 1.9 g/dL
--- NOTE | 2021-07-07 15:53 | NUR ---
Review of pt with daycare assistant and nursing. will speak with son about future care needs. pt has thoracentesis today awaiting pathology.
--- NOTE | 2021-07-07 17:16 | NUR ---
SUMMARY PT SITTING UP IN BED WATCHING TV AND VISITING WITH HIS , PT HAS BEEN PLEASANT AND COOPERATIVE WITH CARE, UP WITH 1P ASSIST, FAMILY HAS BEEN AT THE BEDSIDE TO ASSIST WITH HIS CARE, PT RICKY THORACENTESIS WELL, NO EPISODES OF CONFUSION OR FORGETFULNESS TODAY, PT DOWN TO 4L NC, WHICH IS HIS HOME DOSE, NO ACUTE CHANGES, WILL CONT TO MONITOR
[2021-07-08 08:42] LABS: Albumin, Blood 2.8 g/dL (3.4-5.0); Anion Gap 4 mmol/L (6-16); Blood Urea Nitrogen 26 mg/dL (8-24); Bun/Creatinine Ratio 22.2 (12.0-20.0); CO2, Blood 38 mmol/L (21-32); Calcium, Blood 8.7 mg/dL (8.5-10.1); Chloride, Blood 93 mmol/L (98-108); Creatinine, Blood 1.17 mg/dL (0.60-1.20); Glomerular Filtration Rate 59 (60-); Glucose, Blood 98 mg/dL (70-99); Phosphorus, Blood 2.3 mg/dL (2.5-4.9); Potassium, Blood 3.4 mmol/L (3.5-5.5); Sodium, Blood 135 mmol/L (136-145)
--- NOTE | 2021-07-08 15:52 | NUR ---
PATIENT PLEASANT AND COOPERATIVE WITH STAFF. HAS NOTED CONFUSION AND FORGETFULNESS. FAMILY AT BEDSIDE MOST OF THE DAY/NIGHT TO ASSIST WITH PATIENT. THERE HAVE BEEN NO ACUTE CHANGES TO REPORT OF AT THIS TIME. PATIENT RESTING IN BED WITH CALL LIGHT WITHIN REACH.
--- NOTE | 2021-07-08 19:10 | NUR ---
REPORT RECEIVED. PATIENT IS AWAKE LYING IN BED. PT IS A&0 X4. DENIES PAIN AND NO EVIDENCE OF RESP DISTRESS, RR EVEN AND UNLABORED CURRENTLY ON 6L NC. BED IN LOW POSITION AND CALL LIGHT WITHIN REACH.
--- NOTE | 2021-07-09 04:39 | NUR ---
PATIENT IS ASLEEP LYING IN BED. PT STILL COMPLAINING OF CONSTIPATION, HAS NOT HAD A BM TONIGHT. NO EVIDENCE OF PAIN OR RESP DISTRESS, CURRENTLY ON 6L NC. BED IN LOW POSITION AND CALL LIGTH WITHIN REACH. FAMILY PRESENT AT BEDSIDE.
[2021-07-09 05:42] LABS: Albumin, Blood 2.9 g/dL (3.4-5.0); Anion Gap 5 mmol/L (6-16); Blood Urea Nitrogen 31 mg/dL (8-24); CO2, Blood 36 mmol/L (21-32); Calcium, Blood 8.5 mg/dL (8.5-10.1); Chloride, Blood 92 mmol/L (98-108); Creatinine, Blood 1.24 mg/dL (0.60-1.20); Glomerular Filtration Rate 55 (60-); Glucose, Blood 107 mg/dL (70-99); Phosphorus, Blood 3.2 mg/dL (2.5-4.9); Potassium, Blood 3.8 mmol/L (3.5-5.5); Sodium, Blood 133 mmol/L (136-145)
--- NOTE | 2021-07-09 20:28 | NUR ---
REPORT RECEIVED. PATIENT IS ALERT AND ORIENTED X3 WITH MILD CONFUSION. PT IS CURRENTLY ON 4L NC. DENIES PAIN AND NO EVIDENCE OF RESP DISTRESS. FAMILY CURRENTLY PRESENT AT BEDSIDE. ASSISTED WITH AMBULATING AND TOILETING, BED IN LOW POSITON AND CALL LIGHT WITHIN REACH.
--- NOTE | 2021-07-10 05:24 | NUR ---
PATIENT IS ASLEEP LYING IN BED. VS STABLE, NO ACUTE CHANGES OVERNIGHT. FAMILY STILL PRESENT AT BEDSIDE. RR EVEN AND UNLABORED ON 4LNC, NO S/S OF PAIN OR RESP DISTRESS. BED IN LOW POSITION AND CALL LIGHT WITHIN REACH.
[2021-07-10 05:26] LABS: Albumin, Blood 2.9 g/dL (3.4-5.0); Anion Gap 4 mmol/L (6-16); Blood Urea Nitrogen 31 mg/dL (8-24); Bun/Creatinine Ratio 24.6 (12.0-20.0); CO2, Blood 37 mmol/L (21-32); Calcium, Blood 8.8 mg/dL (8.5-10.1); Chloride, Blood 93 mmol/L (98-108); Creatinine, Blood 1.26 mg/dL (0.60-1.20); Glomerular Filtration Rate 54 (60-); Glucose, Blood 108 mg/dL (70-99); Phosphorus, Blood 2.4 mg/dL (2.5-4.9); Potassium, Blood 3.6 mmol/L (3.5-5.5); Sodium, Blood 134 mmol/L (136-145)
[2021-07-10] MEDS ORDERED: DOCU100 PO (11:12)
[2021-07-10] MEDS ORDERED: MIDO5 PO (11:12)
[2021-07-10] MEDS ORDERED: TAMS.4ER PO (11:13)
--- NOTE | 2021-07-10 12:48 | NUR ---
SUMMARY/DISCHARGE PT DISCHARGED TO HOME WITH HOME HEALTH, AND SON PRESENT, NEW OXYGEN ORDERS SENT TO [facility], FAMILY VERBALIZED UNDERSTANDING OF DISCHARGE ORDERS REGARDING MEDS AND FOLLOW UP, PT TAKEN OUT SAFELY VIA WHEELCHAIR
== END 2021-07-10 12:40 | disposition home health service (06) | DRG 280 ==
LOC: ER 11:26 → MEDS 15:24 → ENPENDDIS 07-10 11:32 → MEDS 07-10 12:40
PROVIDERS: Emergency Medicine; Internal Medicine; ADMIT Hospitalist
PROC: 0W993ZZ Drainage of Right Pleural Cavity, Percutaneous Approach (ICD-10-PCS; principal; 2021-07-05)
DX: I11.0 Hypertensive heart disease with heart failure (principal); I50.23 Acute on chronic systolic (congestive) heart failure; I21.A1 Myocardial infarction type 2; J96.21 Acute and chronic respiratory failure with hypoxia; C34.11 Malignant neoplasm of upper lobe, right bronchus or lung; I48.20 Chronic atrial fibrillation, unspecified; E87.1 Hypo-osmolality and hyponatremia; N17.9 Acute kidney failure, unspecified; E44.1 Mild protein-calorie malnutrition; J91.8 Pleural effusion in other conditions classified elsewhere; Z20.822 Contact with and (suspected) exposure to COVID-19; G47.33 Obstructive sleep apnea (adult) (pediatric); Z66 Do not resuscitate; E87.6 Hypokalemia; F03.90 Unspecified dementia, unspecified severity, without behavioral disturbance, psychotic disturbance, mood disturbance, and anxiety; K59.00 Constipation, unspecified; E83.39 Other disorders of phosphorus metabolism; N40.0 Benign prostatic hyperplasia without lower urinary tract symptoms; I95.2 Hypotension due to drugs; T50.2X5A Adverse effect of carbonic-anhydrase inhibitors, benzothiadiazides and other diuretics, initial encounter; I42.0 Dilated cardiomyopathy; I25.10 Atherosclerotic heart disease of native coronary artery without angina pectoris; E88.09 Other disorders of plasma-protein metabolism, not elsewhere classified; Z92.3 Personal history of irradiation; Z91.048 Other nonmedicinal substance allergy status; Z95.2 Presence of prosthetic heart valve; Z98.890 Other specified postprocedural states; Z79.01 Long term (current) use of anticoagulants; Z79.899 Other long term (current) drug therapy; Z79.51 Long term (current) use of inhaled steroids; Z92.21 Personal history of antineoplastic chemotherapy
CPT/HCPCS: 32555; 36415; 71045; 71250; 80053; 80069; 81001; 82042; 82248; 82945; 83615; 83735; 83880; 84100; 84145; 84157; 84484; 85025; 85027; 85610; 85730; 87070; 87205; 88108; 88305; 89051; 93005; 93010; 93306; 93970; 94640; 94664; 94760; 94761; 94762; 96374; 97110; 97116; 97162; 99285-25; A9270; J1940; J3480; J7050; J7060; J7512; P9046; U0004

== ENCOUNTER → 2021-07-14 | Outpatient (CLI) | payer MEDICARE, BC ==
[~2021-07-14] MED LIST changes: +AMIODARONE HCL200 M1 PO; +DOCU100 PO; +Deltasone 10 mg10 MG; +ENTRESTO 24 MG1 EAC2 PO; +ENTRESTO 49 MG1 EAC7 PO; +FLUTICASONE-SA1 EAC9 INH; +FURO40 PO; +FUROSEMIDE40 MG PO; +IPRAT-ALBUT 0.5-3 ML INH; +LEVO750 PO; +MIDO5 PO; +Prednisone10 MG PO; +TAMS.4ER PO; +XARELTO20 M1 PO
[2021-07-14 17:10] LABS: BASOPHILS ABSOLUTE AUTO 0.02 K/mm3 (0.00-0.23); BASOPHILS PERCENT AUTO 0 % (0-2); EOSINOPHILS PERCENT AUTO 0 % (0-6); Hematocrit 36.6 % (37.0-53.0); Hemoglobin 11.9 g/dL (13.5-17.5); IMMATURE GRAN ABSOLUTE AUTO 0.07 K/mm3 (0.00-0.10); IMMATURE GRAN PERCENT AUTO 1 % (0-1); LYMPHOCYTES ABSOLUTE AUTO 0.14 K/mm3 (0.84-5.20); LYMPHOCYTES PERCENT AUTO 1 % (21-46); MONOCYTES ABSOLUTE AUTO 0.32 K/mm3 (0.16-1.47); MONOCYTES PERCENT AUTO 3 % (4-13); Mean Corpuscular HGB 30.9 pg (26.0-34.0); Mean Corpuscular HGB Conc 32.5 g/dL (31.5-36.5); Mean Corpuscular Volume 95 fL (80-100); Mean Platelet Volume 9.7 fL (9.1-12.4); NEUTROPHILS ABSOLUTE AUTO 9.67 K/mm3 (1.96-9.15); NEUTROPHILS PERCENT AUTO 95 % (41-73); Platelet Count 225 K/mm3 (150-400); RDW Coefficient Variation 15.7 % (11.7-14.2); RDW Standard Deviation 54.9 fL (35.1-46.3); Red Blood Cell Count 3.85 M/mm3 (4.30-5.90); White Blood Cell Count 10.22 K/mm3 (4.00-11.30)
[2021-07-14 17:42] LABS: Alanine Aminotransfer (ALT/SGP 42 U/L (12-78); Albumin/Globulin Ratio 0.8 (0.8-1.8); Alk Phos 132 U/L (50-136); Anion Gap 4 mmol/L (6-16); Aspartate Aminotrans (AST/SGOT 31 U/L (12-37); Bilirubin, Total 1.2 mg/dL (0.1-1.0); Blood Urea Nitrogen 21 mg/dL (8-24); Bun/Creatinine Ratio 24.6 (12.0-20.0); CO2, Blood 38 mmol/L (21-32); Calcium, Blood 8.3 mg/dL (8.5-10.1); Chloride, Blood 91 mmol/L (98-108); Creatinine, Blood 0.85 mg/dL (0.60-1.20); Globulin, Blood 3.8 g/dL (2.2-4.0); Glomerular Filtration Rate >60 (60-); Glucose, Blood 218 mg/dL (70-99); Phosphorus, Blood 2.3 mg/dL (2.5-4.9); Potassium, Blood 3.3 mmol/L (3.5-5.5); Sodium, Blood 133 mmol/L (136-145); Total Protein, Blood 6.8 g/dL (6.4-8.2)
== END | disposition home or self-care (01) ==
LOC: LAB 15:25 → LAB SHORT 15:25
PROVIDERS: Family Medicine
DX: I50.23 Acute on chronic systolic (congestive) heart failure (principal)
CPT/HCPCS: 80053; 83880; 84100; 85025

== ENCOUNTER 2021-07-19 14:24 | Inpatient (IN) | payer MEDICARE, BC ==
[~2021-07-19] VITALS: Ht 182.9 cm; Wt 77.6 kg
[2021-07-19 14:53] LABS: BASOPHILS ABSOLUTE AUTO 0.03 K/mm3 (0.00-0.23); BASOPHILS PERCENT AUTO 0 % (0-2); EOSINOPHILS ABSOLUTE AUTO 0.01 K/mm3 (0.00-0.68); EOSINOPHILS PERCENT AUTO 0 % (0-6); Hematocrit 33.7 % (37.0-53.0); Hemoglobin 11.2 g/dL (13.5-17.5); IMMATURE GRAN ABSOLUTE AUTO 0.09 K/mm3 (0.00-0.10); IMMATURE GRAN PERCENT AUTO 1 % (0-1); LYMPHOCYTES ABSOLUTE AUTO 0.13 K/mm3 (0.84-5.20); LYMPHOCYTES PERCENT AUTO 1 % (21-46); MONOCYTES ABSOLUTE AUTO 0.39 K/mm3 (0.16-1.47); MONOCYTES PERCENT AUTO 3 % (4-13); Mean Corpuscular HGB 31.1 pg (26.0-34.0); Mean Corpuscular HGB Conc 33.2 g/dL (31.5-36.5); Mean Corpuscular Volume 94 fL (80-100); Mean Platelet Volume 9.3 fL (9.1-12.4); NEUTROPHILS ABSOLUTE AUTO 11.73 K/mm3 (1.96-9.15); NEUTROPHILS PERCENT AUTO 95 % (41-73); Platelet Count 206 K/mm3 (150-400); RDW Coefficient Variation 15.8 % (11.7-14.2); RDW Standard Deviation 54.5 fL (35.1-46.3); White Blood Cell Count 12.38 K/mm3 (4.00-11.30)
[2021-07-19 15:15] LABS: Alanine Aminotransfer (ALT/SGP 31 U/L (12-78); Albumin, Blood 2.9 g/dL (3.4-5.0); Albumin/Globulin Ratio 0.7 (0.8-1.8); Alk Phos 97 U/L (50-136); Anion Gap 4 mmol/L (6-16); Aspartate Aminotrans (AST/SGOT 25 U/L (12-37); Bilirubin, Total 1.6 mg/dL (0.1-1.0); Blood Urea Nitrogen 17 mg/dL (8-24); Bun/Creatinine Ratio 22.1 (12.0-20.0); CO2, Blood 39 mmol/L (21-32); Calcium, Blood 8.4 mg/dL (8.5-10.1); Chloride, Blood 89 mmol/L (98-108); Creatinine, Blood 0.77 mg/dL (0.60-1.20); Globulin, Blood 3.9 g/dL (2.2-4.0); Glomerular Filtration Rate >60 (60-); Glucose, Blood 214 mg/dL (70-99); Potassium, Blood 3.3 mmol/L (3.5-5.5); Sodium, Blood 132 mmol/L (136-145); Total Protein, Blood 6.8 g/dL (6.4-8.2)
[2021-07-19 15:16] LABS: Troponin I 0.059 ng/mL (0.000-0.040)
[2021-07-19 19:08] LABS: SARS-Cov-2 (COVID-19) PCR, MMC NEGATIVE (NEGATIVE)
--- NOTE | 2021-07-19 21:10 | NUR ---
report from Chet De Jesus RN in ER
--- NOTE | 2021-07-20 00:24 | NUR ---
patient extremely confused. unsure of why he is in hospital. focusing on only food and h20, and why we "can't" answer his questions even though staff has answered the same questions several times. called to tell staff that he is very impulsive, and to make sure alaarm is on at all times. Patient then pulled out IV (tip intact) and bled quite a bit all over the bed. Farhan had no rememberance of the event. Will attempt to complete admission assessment after he has had a chance to eat.
[2021-07-20 04:45] LABS: BASOPHILS ABSOLUTE AUTO 0.02 K/mm3 (0.00-0.23); BASOPHILS PERCENT AUTO 0 % (0-2); EOSINOPHILS ABSOLUTE AUTO 0.03 K/mm3 (0.00-0.68); EOSINOPHILS PERCENT AUTO 0 % (0-6); Hematocrit 33.2 % (37.0-53.0); Hemoglobin 10.8 g/dL (13.5-17.5); IMMATURE GRAN ABSOLUTE AUTO 0.04 K/mm3 (0.00-0.10); IMMATURE GRAN PERCENT AUTO 0 % (0-1); LYMPHOCYTES ABSOLUTE AUTO 0.31 K/mm3 (0.84-5.20); LYMPHOCYTES PERCENT AUTO 3 % (21-46); MONOCYTES ABSOLUTE AUTO 0.72 K/mm3 (0.16-1.47); MONOCYTES PERCENT AUTO 7 % (4-13); Mean Corpuscular HGB 30.4 pg (26.0-34.0); Mean Corpuscular HGB Conc 32.5 g/dL (31.5-36.5); Mean Corpuscular Volume 94 fL (80-100); Mean Platelet Volume 9.5 fL (9.1-12.4); NEUTROPHILS ABSOLUTE AUTO 9.62 K/mm3 (1.96-9.15); NEUTROPHILS PERCENT AUTO 90 % (41-73); Platelet Count 215 K/mm3 (150-400); RDW Coefficient Variation 15.9 % (11.7-14.2); RDW Standard Deviation 54.3 fL (35.1-46.3); Red Blood Cell Count 3.55 M/mm3 (4.30-5.90); White Blood Cell Count 10.74 K/mm3 (4.00-11.30)
[2021-07-20 05:09] LABS: Alanine Aminotransfer (ALT/SGP 27 U/L (12-78); Albumin, Blood 2.6 g/dL (3.4-5.0); Albumin/Globulin Ratio 0.7 (0.8-1.8); Alk Phos 69 U/L (50-136); Anion Gap 4 mmol/L (6-16); Aspartate Aminotrans (AST/SGOT 22 U/L (12-37); Bilirubin, Total 1.3 mg/dL (0.1-1.0); Blood Urea Nitrogen 17 mg/dL (8-24); CO2, Blood 41 mmol/L (21-32); Calcium, Blood 8.4 mg/dL (8.5-10.1); Chloride, Blood 90 mmol/L (98-108); Creatinine, Blood 0.77 mg/dL (0.60-1.20); Globulin, Blood 3.5 g/dL (2.2-4.0); Glomerular Filtration Rate >60 (60-); Glucose, Blood 126 mg/dL (70-99); Potassium, Blood 2.8 mmol/L (3.5-5.5); Sodium, Blood 135 mmol/L (136-145); Total Protein, Blood 6.1 g/dL (6.4-8.2)
--- NOTE | 2021-07-20 11:14 | NUR ---
Echocardiogram completed.
--- NOTE | 2021-07-20 19:04 | NUR ---
Alert oriented x1 , with some confusion and forgetful , on soft restrainst and assessment done [id number]. Patient was oriented to use call light and bed alarm on at all time. 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 On 4-6 L n/c , No SOB noted , on continue e-monitoring at sp02 at 94% and greater. One person assist with ADLS. pulmonary consult came to see the patient and will follow up with family and hospitalist team. Vital signs are stable , no acute event occur during shift except attempted to get out of bed .Will continue to monitor.
--- NOTE | 2021-07-20 23:25 | NUR ---
PATIENT RESTING COMFORTABLY WITH DAUGHTER KEVEN STAYING IN ROOM. 02 DECREASED FROM 6 LITERS TO 4.5 LITERS HIS SATURATIONS HAVE REMAINED OVER 95% ALL DAY AND EVENING. DAUGHTER DILIGENTLY WATCHING SATURATIONS.
[2021-07-21 04:32] LABS: Hematocrit 34.6 % (37.0-53.0); Hemoglobin 11.3 g/dL (13.5-17.5); Mean Corpuscular HGB 30.8 pg (26.0-34.0); Mean Corpuscular HGB Conc 32.7 g/dL (31.5-36.5); Mean Corpuscular Volume 94 fL (80-100); Mean Platelet Volume 9.4 fL (9.1-12.4); Platelet Count 208 K/mm3 (150-400); RDW Coefficient Variation 15.9 % (11.7-14.2); RDW Standard Deviation 54.9 fL (35.1-46.3); Red Blood Cell Count 3.67 M/mm3 (4.30-5.90); White Blood Cell Count 9.98 K/mm3 (4.00-11.30)
--- NOTE | 2021-07-21 04:43 | NUR ---
Farhan had a much better night with his daughter here for support. Patient was able to get some sleep and (to an extent),cooperate with care. 02 was taken down to 4.5 liters nasal cannula. patient tolerates well. PO prednisone was started last night. lung sounds coarse in dependent bases with brief periods of inspiratory/expiratory wheezing. This was first noticed during a nebulizer treatment and the patient began about one minute of very rhythmic insp/exp wheezing and grunting. 02 sat never dropped. This was witness by both the Respiratory therapist and myself. This happened one more time overnight for about 30 seconds. Patient was unaware.
[2021-07-21 04:54] LABS: Alanine Aminotransfer (ALT/SGP 30 U/L (12-78); Albumin, Blood 2.8 g/dL (3.4-5.0); Albumin/Globulin Ratio 0.7 (0.8-1.8); Alk Phos 72 U/L (50-136); Anion Gap 4 mmol/L (6-16); Aspartate Aminotrans (AST/SGOT 24 U/L (12-37); Bilirubin, Total 1.5 mg/dL (0.1-1.0); Blood Urea Nitrogen 15 mg/dL (8-24); Bun/Creatinine Ratio 20.2 (12.0-20.0); CO2, Blood 41 mmol/L (21-32); Calcium, Blood 8.5 mg/dL (8.5-10.1); Chloride, Blood 91 mmol/L (98-108); Creatinine, Blood 0.74 mg/dL (0.60-1.20); Glomerular Filtration Rate >60 (60-); Glucose, Blood 155 mg/dL (70-99); Potassium, Blood 3.5 mmol/L (3.5-5.5); Sodium, Blood 136 mmol/L (136-145); Total Protein, Blood 6.8 g/dL (6.4-8.2)
--- NOTE | 2021-07-21 11:58 | NUR ---
Spiritual care visit conducted. Patient is lying in bed and alert. Patient's spouse, Radha is bedside. Radha is tearful as she talks about the patient's next step to go home on hospice. Patient then becomes tearful as well. I provide therapeutic listening and anticipatory grief/emotional support. I also provide prayer and pastoral student counselor (based on the family's belief system). Radha responds well and shows signs of being comforted and she says that the prayer was "perfect." I will continue to remain available to patient and family.
[2021-07-21] MEDS ORDERED: MORP20L PO (12:00)
[2021-07-21] MEDS ORDERED: LORA2L PO (12:00)
== END 2021-07-21 14:14 | disposition hospice, home (50) | DRG 291 ==
LOC: ER 14:24 → MEDS 14:25
PROVIDERS: Internal Medicine; Physician Assistant; Student in an Organized Health Care Education/Training Program; ADMIT Internal Medicine
DX: I11.0 Hypertensive heart disease with heart failure (principal); J96.21 Acute and chronic respiratory failure with hypoxia; I50.23 Acute on chronic systolic (congestive) heart failure; I48.20 Chronic atrial fibrillation, unspecified; C34.11 Malignant neoplasm of upper lobe, right bronchus or lung; I48.92 Unspecified atrial flutter; E87.1 Hypo-osmolality and hyponatremia; Z20.822 Contact with and (suspected) exposure to COVID-19; G47.33 Obstructive sleep apnea (adult) (pediatric); I25.10 Atherosclerotic heart disease of native coronary artery without angina pectoris; I95.9 Hypotension, unspecified; E87.6 Hypokalemia; I25.5 Ischemic cardiomyopathy; Z98.890 Other specified postprocedural states; Z95.2 Presence of prosthetic heart valve; Z88.8 Allergy status to other drugs, medicaments and biological substances; Z79.51 Long term (current) use of inhaled steroids; Z79.01 Long term (current) use of anticoagulants; Z79.899 Other long term (current) drug therapy
CPT/HCPCS: 36415; 71045; 80053; 83735; 83880; 84145; 84484; 85025; 85027; 93005; 93010; 93308; 94640; 94664; 94760; 94762; 96374; 96375; 97110; 97162; 99285-25; A9270; G0378; J0696; J1650; J1940; J7050; J7512; U0004